=== PATIENT | female | born 1980 | race Caucasian/White ===

== ENCOUNTER 2019-04-28 21:32 | Emergency (ER) | payer MEDICAID ==
[2019-04-28] MEDS ORDERED: Acetaminophen 500 MG Tab PO ONE (22:01)
[2019-04-28] MEDS ORDERED: Ibuprofen 600 MG Tab PO ONE (22:01)
--- NOTE | 2019-04-28 22:07 | EDM.PDOC ---
ED HPI GENERAL MEDICAL PROBLEM - General Chief Complaint: Abdominal Pain Stated Complaint: STOMACH PAIN Time Seen by Provider: 04/28/19 22:02 Source of Information: Reports: Patient, Old Records History Limitations: Reports: No Limitations - History of Present Illness INITIAL COMMENTS - FREE TEXT/NARRATIVE: 38 yo female presents with epigastric abdominal wall muscle tenderness. Doesn't recall injuring herself. Denies fever, constipation, diarrhea, nausea, or blood in her stools. Eating does not affect her at all, but coughing and deep breathing or trying to perform a sit up hurts her quite a bit. Even trying to tighten her abdominal muscles is painful. No self treatment before arrival. 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 Denies: Anorexia, Black Stool, Bloody Stool, Constipation, Diarrhea, Decreased Appetite, Difficulty Swallowing , Distension, Flatus, Hematemesis, Hematochezia, Melena, Nausea, Vomiting : Reports: No Symptoms Musculoskeletal: Reports: Other (abdominal wall muscles sore) Skin: Reports: No Symptoms Neurological: Reports: No Symptoms Psychiatric: Reports: No Symptoms ED EXAM, GI/ABD - Physical Exam Exam: See Below Exam Limited By: No Limitations General Appearance: Alert, WD/WN, No Apparent Distress Eyes: Bilateral: Normal Appearance Ears: Normal External Exam, Normal Canal, Hearing Grossly Normal Nose: Normal Inspection, No Blood Throat/Mouth: Normal Inspection, Normal Lips, Normal Oropharynx, Normal Voice, No Airway Compromise Head: Atraumatic, Normocephalic Neck: Normal Inspection Respiratory/Chest: No Respiratory Distress, Lungs Clear, Normal Breath Sounds, No Accessory Muscle Use Cardiovascular: Regular Rate, Rhythm, No Edema GI/Abdominal Exam: Normal Bowel Sounds, Soft, No Distention, Tender (epigastric area with palpation). No: Non-Tender, Distended, Guarding, Rigid, Rebound, Abnormal Bowel Sounds, Hernia Back Exam: Normal Inspection. No: CVA Tenderness (R), CVA Tenderness (L) Extremities: Normal Inspection, Normal Range of Motion, Non-Tender, No Pedal Edema Neurological: Alert, Oriented, CN II-XII Intact, Normal Cognition, No Motor/ Sensory Deficits Psychiatric: Normal Affect, Normal Mood Skin Exam: Warm, Dry, Intact, Normal Color, No Rash Course - Orders/Labs/Meds Meds: Medications Discontinued Medications Generic Name Dose Route Start Last Admin Trade Name Freq PRN Reason Stop Dose Admin Acetaminophen 1,000 mg 04/28/19 22:01 Tylenol Extra Strength PO 04/28/19 22:02 ONETIME ONE Ibuprofen 600 mg 04/28/19 22:01 Motrin PO 04/28/19 22:02 ONETIME ONE Departure - Departure Time of Disposition: 22:25 Disposition: Home, Self-Care 01 Condition: Good Clinical Impression: Abdominal muscle strain Qualifiers: Encounter type: initial encounter Qualified Code(s): S39.011A - Strain of muscle, fascia and tendon of abdomen, initial encounter - Discharge Information *PRESCRIPTION DRUG MONITORING PROGRAM REVIEWED*: No *COPY OF PRESCRIPTION DRUG MONITORING REPORT IN PATIENT ROMAN: No Instructions: Muscle Strain, [id number] Referrals: PCP,None [Primary Care Provider] - Forms: ED Department Discharge Additional Instructions: Apply moist heat to affected area for some relief. Ibuprofen 600 mg every 6 hrs with food and acetaminophen 1000 mg every 6 hrs may offer some relief as well. Recheck with your provider as needed. If you have to cough or sneeze hold your hand over the tender area for support. If not fully recovered by the end of this week then recheck. Sepsis Event Note - Focused Exam Date Exam was Performed: 04/28/19 Time Exam was Performed: 22:18
== END 2019-04-28 22:48 | disposition home or self-care (01) ==
LOC: FB.ED 21:32
DX: S39.011A Strain of muscle, fascia and tendon of abdomen, initial encounter (principal); X50.9XXA Other and unspecified overexertion or strenuous movements or postures, initial encounter
CPT/HCPCS: 99283; A9270

== ENCOUNTER 2023-04-28 07:20 | Day surgery (SDC) | payer BC ==
[2023-04-28] MEDS ORDERED: Midazolam 1 MG/ML 2 ML SDV IV ONE (07:21)
[2023-04-28] MEDS ORDERED: Propofol 200 MG/20 ML SDV IV ONE (07:21)
[2023-04-28] MEDS ORDERED: Lactated Ringers 1,000 ML IV SCH (07:30)
[2023-04-28] MEDS ORDERED: Sodium Chloride 0.9% 10 ML Syringe FLUSH PRN (07:30)
[2023-04-28] MEDS ORDERED: Simethicone Drops 40 MG/0.6 ML 30 ML Bottle PO ONE (09:22)
== END 2023-04-28 10:22 | disposition home or self-care (01) ==
LOC: FB.SDS 07:20 → MERGE 09:45 → FB.SDS 10:10
PROVIDERS: ATTEND Surgery
DX: K64.1 Second degree hemorrhoids (principal); K62.5 Hemorrhage of anus and rectum; F32.A Depression, unspecified; E66.01 Morbid (severe) obesity due to excess calories; Z68.36 Body mass index [BMI] 36.0-36.9, adult; Z79.899 Other long term (current) drug therapy
CPT/HCPCS: 00811; 82947; A9270-GY; J2250; J2704; J7120